=== PATIENT | male | born 1955 | race Two or more races ===

== ENCOUNTER 2023-03-06 16:20 | Emergency (ER) | payer BC, MEDICARE ==
[~2023-03-06] VITALS: Ht 172.7 cm; Wt 76.2 kg
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
--- NOTE | 2023-03-06 17:37 | NUR ---
TO ER BED 15 FROM WAITING ROOM, NO CHANGE IN CONDITION
[2023-03-06] MEDS ORDERED: KETOROLAC TROMETHAMINE INJ 60 MG/2 ML VIAL IM ONE (19:00)
[2023-03-06 19:42] VITALS: BP 135/76
--- NOTE | 2023-03-06 19:43 | NUR ---
Patient discharged to home in stable condition. Written and verbal after care instructions given. Patient verbalizes understanding of instruction.
== END 2023-03-06 19:43 | disposition home or self-care (01) ==
LOC: ER 16:32
DX: S70.02XA Contusion of left hip, initial encounter (principal); V03.90XA Pedestrian on foot injured in collision with car, pick-up truck or van, unspecified whether traffic or nontraffic accident, initial encounter; Y93.89 Activity, other specified; Y92.410 Unspecified street and highway as the place of occurrence of the external cause; Y99.8 Other external cause status
CPT/HCPCS: 72170-TC; 73552